=== PATIENT | female | born 1965 | race Caucasian/White ===

== ENCOUNTER 2016-10-21 20:45 | Emergency (ER) | payer OTHER ==
[2016-10-21] MEDS ORDERED: diphenhydrAMINE HCL 50 MG/ML VIAL IM ONE (21:27)
[2016-10-21] MEDS ORDERED: METHYLPREDNISOLONE SOD SUCC/PF 125 MG/2 ML VIAL IM ONE (21:29)
[2016-10-21] MEDS ORDERED: METHYLPREDNISOLONE SOD SUCC/PF 125 MG/2 ML VIAL ONE (21:32)
[2016-10-21] MEDS ORDERED: diphenhydrAMINE HCL 50 MG/ML VIAL ONE (21:32)
--- OUTSIDE RECORDS SUMMARY | 2016-10-21 21:34 | XMS REPORT | Continuity of Care Document ---
:1965 Author Organization [facility] ([facility]) Address [address] [place] [address] Phone [phone] Care Team Providers Name Role Phone Laila Armijo Primary Care Provider [phone] Source Comments This disclosure is being made pursuant to the Care Everywhere program, applicable federal and state laws, and may not contain all informaitonavailable regarding this patient.[facility] ([facility]) Active Allergies and Adverse Reactions No Known Allergies Current Medications Prescription Sig. Disp. Refills Start Date End Date Status acetaminophen 500 mg Take 500 mg by Active tablet mouth every 6 hours as needed. metFORMIN 1,000 mg Take 1,000 mg by Active tablet mouth 2 times daily with meals. Indications: TYPE 2 DIABETES MELLITUS lisinopril 10 mg Take 1 Tab by mouth 60 Tab 2 04/04/2013 Active tablet daily. Indications: HYPERTENSION albuterol 90 Use 2 Puffs by 1 Inhaler 6 04/04/2013 Active mcg/Actuation inhaler inhalation every 6 hours as needed. Indications: CHRONIC OBSTRUCTIVE PULMONARY DISEASE fluticasone-salmetero Use 1 Puff by 1 Inhaler 6 04/15/2013 Active l (ADVAIR 250-50) inhalation 2 times inhaler daily. Indications: COPD ASSOCIATED WITH CHRONIC BRONCHITIS amitriptyline 25 mg Take 1 Tab by mouth 30 Tab 3 04/15/2013 Active tablet at bedtime. Indications: NEUROPATHIC PAIN Active Problems Problem Noted Date Shoulder pain, right 04/15/2013 Hypertension 04/04/2013 Diabetes mellitus type 2 in obese 04/04/2013 Hyperlipidemia 04/04/2013 COPD (chronic obstructive pulmonary disease) 04/04/2013 Pulmonary nodule needs repeat CT scan October 2013 04/04/2013 Resolved Problems Problem Noted Date Resolved Date COPD with exacerbation 04/04/2013 04/15/2013 Immunizations Name Dates Previously Given Next Due Pneumococcal Polysaccharide, PPSV23 (Pneumovax 23) 04/15/2013 Social History Tobacco Use Types Packs/Day Years Used Date Current Every Day Smoker Cigarettes 1 20 Smokeless Tobacco: Never Used Alcohol Use Drinks/Week oz/Week Comments Yes 2 Standard drinks or equivalent Last Filed Vital Signs Vital Sign Reading Time Taken Blood Pressure 119/76 04/15/2013 10:50 AM CDT Pulse 107 04/15/2013 10:50 AM CDT Temperature 36.2 C (97.2 F) 04/15/2013 10:50 AM CDT Respiratory Rate 14 04/04/2013 12:35 PM CDT Height 1.727 m (5' 8") 04/04/2013 12:35 PM CDT Weight 102.105 kg (225 lb 1.6 oz) 04/15/2013 10:50 AM CDT Body Mass Index 34.23 04/15/2013 10:50 AM CDT Oxygen Saturation 96% 03/24/2013 5:34 PM CDT Plan of Care Health Maintenance Due Date Last Done Comments Hepatitis B Vaccine (1 of 3 - Primary 1967 Series) Tdap Vaccine 1978 MMR Vaccine 1985 Td Vaccine 1985 Cervical Cancer Screening 1997 Mammogram 2007 DIABETIC: Foot Exam 04/04/2013 DIABETIC: Retinal Eye Exam 04/04/2013 DIABETIC: Hemoglobin A1C 10/04/2013 04/04/2013 DIABETIC: Microalbumin 04/04/2014 04/04/2013 DIABETIC: Cholesterol 04/15/2014 04/15/2013, 04/04/2013 Diabetic: Hdl 04/15/2014 04/15/2013, 04/04/2013 Diabetic: Ldl 04/15/2014 04/15/2013, 04/04/2013 DIABETIC: Triglycerides 04/15/2014 04/15/2013, 04/04/2013 Influenza Vaccine: Seasonal (#1) 03/07/2016 Pneumococcal Vaccine Completed 04/15/2013 Results from Last 3 Months Not on file
--- NOTE | 2016-10-21 21:40 | ERNOTE ---
Allergy Symptoms - ER Date of Service: 10/21/16 Presenting Symptoms: skin rash, itching Time Seen by Provider: 10/21/16 21:19 Source: patient, RN notes reviewed Exam Limitations: no limitations Immunizations: IMMUNIZATION HX Immunizations Up to Date Yes History of Influenza Vaccine No Hx Pneumococcal Vaccination No Allergies/Adverse Reactions: Allergies No Known Allergies Allergy (Verified 10/21/16 20:52) Home Medications: HOME MEDICATIONS Acetaminophen [Tylenol] 650 mg PO Q4H PRN #0 tablet 02/19/14 [Last Taken Unknown ] Albuterol Sulfate [Ventolin Hfa] 2 puff IH Q4H PRN #1 inhaler 11/03/15 [Last Taken Unknown] Aspirin [Aspirin Enteric Coated] 325 mg PO DAILY #30 tablet. 11/03/15 [Last Taken Unknown] Clopidogrel Bisulfate [Plavix] 75 mg PO DAILY #30 tab 11/03/15 [Last Taken Unknown] Losartan Potassium [Cozaar] 100 mg PO DAILY #30 tab 11/03/15 [Last Taken Unknown ] Omeprazole [Prilosec] 40 mg PO DAILY #30 cap 11/03/15 [Last Taken Unknown] Simvastatin [Zocor] 40 mg PO HS #30 tablet 11/03/15 [Last Taken Unknown] metFORMIN HCL [Glucophage] 500 mg PO BIDWM #60 tablet 11/03/15 [Last Taken Unknown] predniSONE [Prednisone] 2 tab PO DAILY #10 tab 10/21/16 [Last Taken Unknown] - History of Present Illness Narrative: 51 y/o female ambulatory to the ED for an allergic reaction. She began having a rash and itching this evening. She took Benadryl without improvement. She had colored her hair earlier today, and does have a rash on her neck, but has papules on her arms, feet and lower legs as well. She denies any medication changes or use of any new products. No one else in her home has a rash. Timing: Present: getting worse Treatment SOFTWARE ENGINEER INTERN:: by patient, benadryl Location swelling: Present: none Severity shortness of breath: Present: mild Identified cause?: No Prior Treament: Denies: recently seen, similar symptoms before, currently on antibiotics Review of Systems - Review of Systems Constitutional: Absent: recent illness, malaise EYE: Present: other - itching. Absent: tearing ENT: Absent: nose congestion, nasal drainage, throat swelling Respiratory: Absent: shortness of breath, wheezing Cardiology: Present: no symptoms reported Gastrointestinal/Abdominal: Present: no symptoms reported Genitourinary: Present: no symptoms reported Musculoskeletal: Present: no symptoms reported Skin: Present: rash. Absent: lumps Neurological: Absent: headache, dizziness/light-headedness, weakness Endocrine: Present: no symptoms reported Hematologic/Lymphatic: Present: no symptoms reported Psych: Present: no symptoms reported - Patient's Past Medical History Patient History - Medical: Diabetes Type 2, GERD, Migraines, Osteoarthritis Patient History - Cardiac/Respiratory: Hypertension, Hyperlipidemia Patient History - Cancer: No Hx of Cancer Patient History - Surgical Procedures: Appendectomy, Cholecystectomy, Hysterectomy Patient History - Other: None - Social History Living Situations: home Abuse History: No History of abuse Psych History: No pertinent hx Smoking Status: Current every day smoker Cigarettes Packs Per Day: 1 Alcohol Use: none Drug Use: none - Immunizations Immunizations Up to Date: Yes Hx Pneumococcal Vaccination: No History of Influenza Vaccine: No Physical Exam - Physical Exam General Appearance: Present: wd/wn, alert, no apparent distress, other - scratching arms and legs continually Eye Exam: Normal inspection: bilateral Ears, Nose, Throat: Present: normal ENT inspection Neck: Present: nontender, supple, full range of motion Respiratory: Present: no respiratory distress, normal breath sounds, no accessory muscle use, lungs clear Cardiovascular/Chest: Present: regular rate, rhythm, no murmur, normal peripheral pulses Extremity Exam: Present: non-tender, normal range of motion, no edema Neurological Exam: Present: alert, oriented, normal mood/affect, no motor/ sensory deficits Skin Exam: Present: normal color, warm/dry, skin rash - papules around base of neck, on both arms, both hands, both feet, and both lower legs ED Progress - Vital Signs Patient's Vital Signs:: I have reviewed the patient's vital signs. Vital Signs: Vital Signs 10/21/16 10/21/16 20:48 21:00 Temperature 36.6 C Pulse Rate 102 H Respiratory 20 16 Rate Blood Pressure 162/95 O2 Sat by Pulse 98 Oximetry - Progress/Reassessment Chief Complaint: Allergic Reaction Progress:: Improved Departure Clinical Impression: Rash and nonspecific skin eruption - Departure Disposition: Home self-care Condition: Good Instructions: Contact Dermatitis Additional Instructions: Start prednisone tomorrow - take in mornings with food OK to take Benadryl every 6 hours as needed for itching Cortisone 10 cream may also help Follow up with your doctor if symptoms persist Referrals: Laila Armijo MD [Primary Care Provider] - Prescriptions: predniSONE [Prednisone] 2 tab PO DAILY #10 tab
[2016-10-21 22:06] VITALS: BP 116/84
== END 2016-10-21 21:51 | disposition home or self-care (01) ==
LOC: ER 20:45
DX: R21 Rash and other nonspecific skin eruption (principal); Z72.0 Tobacco use; E11.9 Type 2 diabetes mellitus without complications; E78.5 Hyperlipidemia, unspecified; K21.9 Gastro-esophageal reflux disease without esophagitis

== ENCOUNTER 2016-11-26 15:56 | Observation (INO) | payer OTHER ==
--- OUTSIDE RECORDS SUMMARY | 2016-11-26 16:26 | XMS REPORT | Continuity of Care Document ---
:1965 Author Organization [facility] ([facility]) Address [address] [place] [address] Phone [phone] Care Team Providers Name Role Phone Laila Armijo Primary Care Provider [phone] Source Comments This disclosure is being made pursuant to the Care Everywhere program, applicable federal and state laws, and may not contain all informaitonavailable regarding this patient.[facility] ([facility]) Active Allergies and Adverse Reactions No Known [...]
[2016-11-26 16:28] LABS: Hematocrit 44.4 % (37.0-47.0); Hemoglobin 14.8 gm/dL (12.5-16.0); Mean Cell Volume 89.3 fl (78-100); Mean Corpuscular Hemoglobin 29.8 pg (27-31); Mean Corpuscular Hgb Conc 33.3 g/dl (32-36); Mean Platelet Volume 9.5 fl (6.0-9.5); Neutrophil # 5.3 K/mm3 (1.3-6.0); Neutrophil % 50.6 % (42-75.0); Platelet Count 281 K/mm3 (150-450); Red Blood Count 4.97 M/mm3 (4.2-5.4); Red Cell Distribution Width 13.6 % (11.5-14.0); White Blood Count 10.4 K/mm3 (4.0-10.5)
[2016-11-26 16:37] LABS: Albumin * 3.5 gm/dl (3.4-5.0); Anion Gap 14.6 mmol/L (6.8-13.8); BUN/Creatinine Ratio 9.6 (9.0-21.6); Bilirubin, Total 0.3 mg/dL (0.0-1.1); Calcium * 8.9 mg/dL (7.9-10.9); Carbon Dioxide 26.1 mmol/L (24-32.6); Potassium 3.7 mmol/L (3.4-4.6); Total Protein 7.3 gm/dL (6.2-8.2)
--- OUTSIDE RECORDS SUMMARY | 2016-11-26 17:45 | XMS REPORT | Continuity of Care Document ---
:1965 Author Organization [facility] ([facility]) Address [address] [place] [address] Phone [phone] Care Team Providers Name Role Phone Laila Armijo Primary Care Provider [phone] Source Comments This disclosure is being made pursuant to the Care Everywhere program, applicable federal and state laws, and may not contain all informaitonavailable regarding this patient.[facility] ([facility]) Active Allergies and Adverse Reactions No Known [...]
--- NOTE | 2016-11-26 17:52 | ERNOTE ---
Neuro HPI ER Record Date of Service: 11/26/16 Presenting Symptoms: impaired speech, confusion Time Seen by Provider: 11/26/16 16:08 Source: patient, EMS Exam Limitations: no limitations Immunizations: IMMUNIZATION HX Immunizations Up to Date Yes History of Influenza Vaccine No Hx Pneumococcal Vaccination No Allergies/Adverse Reactions: Allergies Allergy/AdvReac Type Severity Reaction Status Date / Time No Known Allergies Allergy Verified 10/21/16 20:52 Home Medications: HOME MEDICATIONS Acetaminophen [Tylenol] 650 mg PO Q4H PRN #0 tablet 02/19/14 [Last Taken Unknown ] Albuterol Sulfate [Ventolin Hfa] 2 puff IH Q4H PRN #1 inhaler 11/03/15 [Last Taken Unknown] Aspirin [Aspirin Enteric Coated] 325 mg PO DAILY #30 tablet. 11/03/15 [Last Taken Unknown] Clopidogrel Bisulfate [Plavix] 75 mg PO DAILY #30 tab 11/03/15 [Last Taken Unknown] Losartan Potassium [Cozaar] 100 mg PO DAILY #30 tab 11/03/15 [Last Taken Unknown ] Omeprazole [Prilosec] 40 mg PO DAILY #30 cap 11/03/15 [Last Taken Unknown] Simvastatin [Zocor] 40 mg PO HS #30 tablet 11/03/15 [Last Taken Unknown] metFORMIN HCL [Glucophage] 500 mg PO BIDWM #60 tablet 11/03/15 [Last Taken Unknown] predniSONE [Prednisone] 2 tab PO DAILY #10 tab 10/21/16 [Last Taken Unknown] - History of Present Illness Narrative: Patient came by EMS after getting confuse and some more weakness on her R side. Patient was having some problems with speech according to EMS. Patient condition improved. Patient has Hx of R side weakness due to a previous CVA. Date (Duration): 11/26/16 Time (Timing): 14:50 Last Date Known Well: 11/26/16 Last Time Known Well: 14:50 Onset: sudden onset Severity: mild - Character of Deficits New weakness: Present: RUE, RLE Additional Deficits: Present: impaired speech, weakness, off balance Baseline Cognition: Present: alert, oriented x 4 Baseline Gait: Present: walks w/o assistance Associated Symptoms: Denies: fever/chills, sweating, chest pain, neck/back pain , headache, fainting, seizure, altered mental status, disoriented, confused, agitated, trouble concentrating, trouble thinking Prior Treament: Reports: recently seen Review of Systems - Review of Systems Constitutional: Present: weakness, malaise EYE: Present: no symptoms reported ENT: Present: no symptoms reported Respiratory: Present: no symptoms reported Cardiology: Absent: chest pain, palpitations, syncope, edema Gastrointestinal/Abdominal: Present: no symptoms reported Genitourinary: Present: no symptoms reported Musculoskeletal: Present: no symptoms reported Skin: Present: no symptoms reported Neurological: Present: dizziness/light-headedness, weakness, numbness, pre- existing deficit - R side weakness. Absent: anxiety, depressed, headache, seizure Endocrine: Present: no symptoms reported Hematologic/Lymphatic: Present: no symptoms reported Psych: Present: no symptoms reported All Other Systems: All systems neg except as marked - Patient's Past Medical History Patient History - Medical: Diabetes Type 2, GERD, Migraines, Osteoarthritis Patient History - Cardiac/Respiratory: CVA/Stroke, Hypertension, Hyperlipidemia , TIA Patient History - Cancer: No Hx of Cancer Patient History - Surgical Procedures: Appendectomy, Cholecystectomy, Hysterectomy Patient History - Other: None LMP (females 10-50): other - Social History Living Situations: home Abuse History: No History of abuse Psych History: No pertinent hx Alcohol Use: none Drug Use: none - Immunizations Immunizations Up to Date: Yes Hx Pneumococcal Vaccination: No History of Influenza Vaccine: No Physical Exam - Physical Exam General Appearance: Present: wd/wn, alert, no apparent distress Eye Exam: Normal inspection: bilateral, PERRL: bilateral, EOMI: bilateral Ears, Nose, Throat: Present: normal ENT inspection, normal pharynx Neck: Present: normal inspection, nontender Respiratory: Present: no respiratory distress, normal breath sounds, no accessory muscle use, chest nontender, lungs clear Cardiovascular/Chest: Present: regular rate, rhythm, no murmur, normal peripheral pulses Gastrointestinal/Abdominal: Present: normal bowel sounds, nontender, nondistended, soft, no organomegaly Rectal Exam: Present: nontender, normal rectal tone Back Exam: Present: normal inspection, normal range of motion, no CVA tenderness , no vertebral tenderness Extremity Exam: Present: normal inspection, non-tender, normal range of motion, no edema Neurological Exam: Present: alert, oriented, normal mood/affect, motor weakness - R side weakness when compared to the L side.. Absent: disoriented to person, disoriented to time, disoriented to place, disoriented to situation Skin Exam: Present: normal color, warm/dry Lymphatic Exam: Present: no adenopathy [place] Coma Scale - Assess Eye Opening: Spontaneous Motor: Obeys Commands Verbal: Oriented - Total Coma Scale Total: 15 Initial Stroke Assessment - Date/Time of assessment Stroke Scale Date: 11/26/16 Stroke Scale Time: 15:55 - NIH Stroke Scale Level of Consciousness: Alert LOC Questions (Year and Age): Answers both correctly LOC Commands (open/close eyes/fist): Performs both correctly Lateral Gaze Paresis: None Visual Field Loss: No visual loss Facial Palsy: Normal movement Right Arm Motor (10 sec hold): Drift Left Arm Motor (10 sec hold): No drift Right Leg Motor (5 sec hold): Drift Left Leg Motor (5 sec hold): No drift Limb Ataxia (finger/nose heel/sierra): Absent Sensory Loss (pinprick arms/legs/face): No sensory loss Language Aphasia (description/naming/reading): No aphasia; normal Dysarthria (speech clarity): Normal articulation Neglect Inattention (visual/tactile/auditory/spatial/person): No neglect Initial Stroke Scale Score:: 2 Stroke Inclusion/Exclusion Cri - Inclusion Questions: Yes Onset of symptoms <3 1/2 hours of admission to ETC: Yes - Exclusion Questions: Major symptoms rapidly improving: Yes Seizure at onset of stroke: No NIHSS Score <4 or >22 performed by physician: Yes Secondary Stroke Assessment - Date/Time of assessment Stroke Scale Date: 2 Stroke Scale Time: 17:46 - NIH Stroke Scale Level of Consciousness: Alert LOC Questions (Year and Age): Answers both correctly LOC Commands (open/close eyes/fist): Performs both correctly Lateral Gaze Paresis: None Visual Field Loss: No visual loss Facial Palsy: Normal movement Right Arm Motor (10 sec hold): Drift Left Arm Motor (10 sec hold): No drift Right Leg Motor (5 sec hold): Drift Left Leg Motor (5 sec hold): No drift Limb Ataxia (finger/nose heel/sierra): Absent If present, ataxia in:: Right arm Sensory Loss (pinprick arms/legs/face): No sensory loss Language Aphasia (description/naming/reading): No aphasia; normal Dysarthria (speech clarity): Normal articulation Neglect Inattention (visual/tactile/auditory/spatial/person): No neglect Secondary Stroke Scale Total:: 2 ED Progress - Date and Time Seen: Date and Time: 11/26/16 17:47 Patient at this point is considered to have a TIA. Patient with Hx of CVA and R side weakness. Patient will be place in hospital for observation further evaluation. 11/26/16 17:51 Case was presented to Hospitalist Service and accepted in Observation. - Results and Orders Patient's Lab Results:: I have reviewed the patient's lab results. Results and Orders: CBC: WNL CMP: WNL - Vital Signs Patient's Vital Signs:: I have reviewed the patient's vital signs. Vital Signs: Vital Signs 11/26/16 16:09 Temperature 36.8 C Pulse Rate 105 H Respiratory 24 H Rate O2 Sat by Pulse 92 Oximetry - EKG EKG: NSR EKG read: Interp. by me EKG Comments: HR: 107, S. Tachy, No ST Elevations, No change from previous EKG. - CT/Ultrasound CT/Ultrasound Narrative: CT Head: No new changes reported by Radiologist - Progress/Reassessment Chief Complaint: CerebroVascular Accident Progress:: Improved - Transfer of Care Expected Disposition: Admit Plan - Plan Plan: Patient is to be place in Observation Departure Clinical Impression: TIA (transient ischemic attack) Qualifiers: Transient cerebral ischemia type: unspecified Qualified Code(s): G45.9 - Transient cerebral ischemic attack, unspecified - Departure Disposition: [facility] Condition: Fair Referrals: Laila Armijo MD [Primary Care Provider] -
[2016-11-26] MEDS ORDERED: SIMVASTATIN 40 MG TABLET PO SCH (21:00)
[2016-11-26] MEDS ORDERED: CLOPIDOGREL BISULFATE 75 MG TABLET PO SCH (21:00)
[2016-11-26] MEDS: metFORMIN HCL 500 MG TABLET PO SCH (21:22)
--- NOTE | 2016-11-26 21:47 | HP ---
Chief Complaint - Chief Complaint Date of Service: 11/26/16 Time of Service: 21:01 Chief Complaint: " Dizziness, RT sided weakness,shaky". Source of HPI- Pt, reliable, ER provider notes. History of Present Illness: Ms. Kern is a 51-yr-old [place] pt of Dr. Laila Armijo with a PMH of: Appendicitis, CVA, Depression, DM II, HTN, HLD, Migraines, & Osteoporosis. Pt states that she was out doing eater egg hunting with family at 1 pm when she suddenly felt "dizzy, shaky and hot." She sat down for abit, but the symptoms never went away. She felt her RT side was getting weaker, and could not lift her RT leg. She reports having difficulty with speech. She states that she ' knew what she wanted to say but words could not come out.' Her came home and convinced her about seeking immediate medical care and she was brought to the [facility] ER at about 4.pm.There was no loss of consciousness. She denies the associated symptoms of N/V, Diaphoresis, & SOB. Since coming to the ED, she states that she has had on & off periods where she feels her "right eye is cloudy." Off note, she reports having CVA in February,, which left her with some RT sided weakness and required extensive rehabilitation at the [facility]. She has been on Aspirin, Plavix & Simvastatin since then. She states that even though she has always had some RT sided weakness, with today's episode, she felt more weaker. At the ED, the initial CT was negative for CVA.The lab-work was unremarkable. She has been a smoker for 23 yrs and says she has cut down from 3 PPD to 1 PPD. She will be admitted under observation status to ensure that there is no worsening Stroke symptoms that could cause loss of airway. - Patient's Past Medical History Patient History - Medical: Diabetes Type 2, Depression, GERD, Migraines, Osteoarthritis, Osteoporosis, Other - Osteoporosis, Migraines Patient History - Cardiac/Respiratory: CVA/Stroke, Hypertension, Hyperlipidemia , TIA Patient History - Cancer: No Hx of Cancer Patient History - Surgical Procedures: Appendectomy, Cholecystectomy, Hysterectomy Patient History - Other: None LMP (females 10-50): other - Family History Father Family History - Medical: Family History - Cardiac/Respiratory: Hypertension Mother Family History - Medical: Family History - Cardiac/Respiratory: Hypertension Family History - Cancer: Lung - Social History Living Situations: home Abuse History: No History of abuse Psych History: No pertinent hx Smoking Status: Current every day smoker Have you smoked in the past 12 months: Yes Do you dip or chew tobacco: No Smoking Start Date: 08/07/79 Patient requests Smoking Cessation Consult: No Initiate information on Smoking Cessation: No Alcohol Use: none Drug Use: none - Immunizations Immunizations Up to Date: Yes Hx Pneumococcal Vaccination: No History of Influenza Vaccine: No Review Of Systems (GEN) - Review of Systems Generalized/Overall Review: Present: Weakness - RT sided weakness,. Absent: Fever, Malaise EENTM: Present: Eye Pain, Blurred Vision - RT eye, Ear Pain. Absent: Throat Pain Respiratory: Absent: Cough, Shortness of Breath, Orthopnea Cardiac: Absent: Chest Pain, Edema, Palpitations Abdominal: Absent: Nausea, Vomiting, Hematemesis Genitourinary: Absent: Burning, Itching, Urgency, Hesitancy Musculoskeletal: Absent: Joint Pain, Back Pain, Joint Swelling Neurological: Present: Headache, Numbness, Weakness. Absent: Anxiety, Depressed , Tremors Skin: Absent: Dryness, Lesions Endocrine: Present: Intolerance to Heat Misc: All systems neg except as marked Immunizations: IMMUNIZATION HX Immunizations Up to Date Yes History of Influenza Vaccine No Hx Pneumococcal Vaccination No Allergies/Adverse Reactions: Allergies Allergy/AdvReac Type Severity Reaction Status Date / Time No Known Allergies Allergy Verified 10/21/16 20:52 Home Medications: HOME MEDICATIONS Acetaminophen [Tylenol] 650 mg PO Q4H PRN #0 tablet 02/19/14 [Last Taken Unknown ] Albuterol Sulfate [Ventolin Hfa] 2 puff IH Q4H PRN #1 inhaler 11/03/15 [Last Taken Unknown] Simvastatin [Zocor] 40 mg PO HS #30 tablet 11/03/15 [Last Taken 11/25/16 20:00] Aspirin [Aspirin Enteric Coated] 325 mg PO QAM 11/26/16 [Last Taken 11/26/16 12: 00] Clopidogrel Bisulfate [Plavix] 75 mg PO HS 11/26/16 [Last Taken 11/25/16 21:00] Losartan Potassium [Cozaar] 100 mg PO QAM 11/26/16 [Last Taken 11/26/16] Omeprazole [Prilosec] 40 mg PO QAM 11/26/16 [Last Taken 11/26/16 12:00] metFORMIN HCL [Glucophage] 1,000 mg PO BIDWM 11/26/16 [Last Taken 11/26/16 09:00 ] Exam - Exam Vital Signs: Vital Signs - Last Taken Temp 36.6 C 11/26/16 18:39 Pulse 92 11/26/16 18:39 Resp 18 11/26/16 18:39 BP 123/76 11/26/16 18:39 Pulse Ox 92 11/26/16 18:39 Constitutional: Present: Alert, Oriented x3, No distress ENT Exam: Present: normal ENT inspection, hearing grossly normal, dry mucous membranes. Absent: nasal drainage, pharyngeal erythema Eye Exam: bilateral eye: normal inspection, PERRL Neck: Present: full range of motion, supple, normal inspection Back Exam: Present: normal inspection, no CVA tenderness Breasts: Present: Exam deferred Respiratory: Present: lungs clear, no accessory muscle use Cardiovascular/Chest: Present: normal peripheral pulses, regular rate, rhythm, no chest tenderness, no edema, no murmur Abdomen: Present: Normal bowel sounds, soft, nontender /Rectal: Present: Exam deferred Extremity: Present: normal range of motion, non-tender, normal inspection, no pedal edema Skin Exam: Present: warm/dry, no cyanosis Lymphatic: Present: no adenopathy Neurologic: Present: oriented x 3, other - GSC-15, Muscle stregth 5/5 on LUE & LLE & 3/5 on RUE & RLE. Appearance: Present: appropriate appearance, appropriate insight Eye contact: Present: cooperative, good eye contact, decreased rate of speech, other - dysarthria, no visual field defect. Thoughts: Present: no apparent hallucination Diagnostic Studies: Laboratory Results WBC 10.4 K/mm3 (4.0-10.5) 11/26/16 16:17 RBC 4.97 M/mm3 (4.2-5.4) 11/26/16 16:17 Hgb 14.8 gm/dL (12.5-16.0) 11/26/16 16:17 Hct 44.4 % (37.0-47.0) 11/26/16 16:17 MCV 89.3 fl (78-100) 11/26/16 16:17 MCH 29.8 pg (27-31) 11/26/16 16:17 MCHC 33.3 g/dl (32-36) 11/26/16 16:17 RDW 13.6 % (11.5-14.0) 11/26/16 16:17 Plt Count 281 K/mm3 (150-450) 11/26/16 16:17 MPV 9.5 fl (6.0-9.5) 11/26/16 16:17 Immature Gran % (Auto) 0.50 % (0.001-0.429) H 11/26/16 16:17 Immature Gran # (Auto) 0.05 K/mm3 (0.000-0.0310) H 11/26/16 16:17 Neutrophils % 50.6 % (42-75.0) 11/26/16 16:17 Lymphocytes % 41.4 % (20-51) 11/26/16 16:17 Monocytes % 6.0 % (0.0-9) 11/26/16 16:17 Eosinophils % 1.2 % (0.0-3.0) 11/26/16 16: Basophils % 0.3 % (0.0-1.0) 11/26/16 16:17 Nucleated RBC % 0.0 k/mm3 (0-1) 11/26/16 16:17 Neutrophils # 5.3 K/mm3 (1.3-6.0) 11/26/16 16:17 Lymphocytes # 4.3 k/mm3 (1.5-3.5) H 11/26/16 16:17 Monocytes # 0.6 k/mm3 (0.0-1.0) 11/26/16 16:17 Eosinophils # 0.1 k/mm3 (0.0-0.7) 11/26/16 16:17 Absolute Basophils 0.0 k/mm3 (0.0-0.1) 11/26/16 16:17 Sodium 141 mmol/L (132-142) 11/26/16 16:17 Plasma Sodium 142 mmol/L (130-142) 11/26/16 16:17 Potassium 3.7 mmol/L (3.4-4.6) 11/26/16 16:17 Chloride 104 mmol/L (97-106) 11/26/16 16:17 Carbon Dioxide 26.1 mmol/L (24-32.6) 11/26/16 16:17 Anion Gap 14.6 mmol/L (6.8-13.8) H 11/26/16 16:17 BUN 12 mg/dL (3-23) 11/26/16 16:17 Creatinine 1.25 mg/dL (0.4-1.4) 11/26/16 16:17 Est GFR (Non-Af Amer) 48 mL/min (60-130) L D 11/26/16 16:17 BUN/Creatinine Ratio 9.6 (9.0-21.6) 11/26/16 16:17 Random Glucose 187 mg/dL (70-110) H 11/26/16 16:17 Calcium 8.9 mg/dL (7.9-10.9) 11/26/16 16:17 Calcium Adj for Albumin 9.0 mg/dL (8.4-10.2) 11/26/16 16:17 Total Bilirubin 0.3 mg/dL (0.0-1.1) 11/26/16 16:17 AST 10 U/L (0-48) 11/26/16 16:17 ALT 17 U/L (19-67) L 11/26/16 16:17 Alkaline Phosphatase 76 U/L (50-170) 11/26/16 16:17 Total Protein 7.3 gm/dL (6.2-8.2) 11/26/16 16:17 Albumin 3.5 gm/dl (3.4-5.0) 11/26/16 16:17 Assessment/Plan - Assessment/Plan (1) TIA (transient ischemic attack) Assessment: Pt presented with neurological dysfunction involving RT sided weakness, Dysathria, but there was no evidence of acute infarction on the Head CT done at the ED. The symptoms appear to have resolved on its own, but pt reports on and off periods of blurry vision and her RT side feels weaker, even thought she normally has mild weakness from prior CVA. May need MRI of the Brain and Carotid doppler, which needs to be obtained within 24 hours of symptom onset. She is already on Antiplatelet therapy, Antihypertensives, and statins. Therefore, will provide supportive mgt/observe: neurological deterioration, monitor cardiac rhythm, supplemental o2, allow permissive HTN, Blood sugar checks & neuro chekcs q 4 hrs. Problem: Acute Qualifiers: Transient cerebral ischemia type: unspecified Qualified Code(s): G45.9 - Transient cerebral ischemic attack, unspecified (2) Diabetes Problem: Chronic Qualifiers: Diabetes mellitus type: type 2 (3) History of CVA with residual deficit Problem: Chronic (4) HTN (hypertension) Problem: Chronic Qualifiers: Hypertension type: essential hypertension Qualified Code(s): I10 - Essential (primary) hypertension
[2016-11-26 22:50] LABS: Prothrombin Time (Patient) 10.1 Seconds (9.4-11.4)
[2016-11-26 22:52] LABS: INR 0.97 INR (0.90-1.10); Partial Thrombolplastin Time 26.1 Seconds (24-32)
[2016-11-26] MEDS ORDERED: ALBUTEROL SULFATE 2.5 MG/0.5 ML VIAL.NEB IH PRN (23:00)
[2016-11-27] MEDS: ACETAMINOPHEN 325 MG TABLET PO PRN ×2 (03:59→10:56)
[2016-11-27] MEDS ORDERED: NICOTINE 21 MG PATC TD SCH (04:00)
[2016-11-27] MEDS ORDERED: PANTOPRAZOLE SODIUM 40 MG TABLET.EC PO SCH (07:00)
[2016-11-27] MEDS ORDERED: ALBUTEROL SULFATE 2.5 MG/3 ML VIAL.NEB IH PRN (07:27)
[2016-11-27] MEDS: metFORMIN HCL 500 MG TABLET PO SCH (08:50)
[2016-11-27] MEDS ORDERED: LOSARTAN POTASSIUM 50 MG TABLET PO SCH (09:00)
[2016-11-27] MEDS ORDERED: ASPIRIN 325 MG TABLET.DR PO SCH (09:00)
[2016-11-27 12:45] VITALS: BP 118/80
--- NOTE | 2016-11-27 13:20 | DS ---
Description of Stay: Date of Admission: 11/26/16 Date of Discharge: 11/27/16 Description of Stay: 11/26/16 51 year old female admitted with increasing right sided weakness. history of cva february 2014 with residual right sided weakness, currently taking aspirin, plavix and simvastatin. ct of head in ER was non-acute. patient continues to smoke daily - 1 PPD. 11/27/16 discharge day. smoking cessation discussed. handouts provided. no acute event overnight. Procedures Performed: none Results and Findings: Laboratory Tests 11/26/16 11/26/16 11/26/16 16:17 16:17 22:25 WBC 10.4 Hgb 14.8 Plt Count 281 Sodium 141 BUN 12 Creatinine 1.25 Random Glucose 187 H AST 10 ALT 17 L Troponin I Less than 0.017 Discharge Disposition: Home self care Disposition: Home self-care Condition: Undetermined Discharge Activity: Activity as tolerated Discharge Diet: Consistent carbs Referrals: Laila Armijo MD [Primary Care Provider] - Problem Oriented Discharge Instructions to Patient/Family: Stroke Prevention, [id number], Transient Ischemic Attack, [id number], Smoking Cessation, Tips for Success Additional Patient Instructions (free text): Be sure to drink plenty of water. Stop smoking! Follow up with primary care physician in 1 month. Medication changes: - Cholesterol medication - Take 2 Zocor tabs from home supply until medication is gone. - Then switch to Lipitor 40 mg daily (Rx sent in at discharge). Prescriptions (Any new or edited meds): Atorvastatin Calcium [Lipitor] 40 mg PO HS #30 tablet Complete Home Medications List: Complete Home Medication List: Acetaminophen [Tylenol] 650 mg PO Q4H PRN #0 tablet 02/19/14 Albuterol Sulfate [Ventolin Hfa] 2 puff IH Q4H PRN #1 inhaler 11/03/15 Aspirin [Aspirin Enteric Coated] 325 mg PO QAM 11/26/16 Clopidogrel Bisulfate [Plavix] 75 mg PO HS 11/26/16 Losartan Potassium [Cozaar] 100 mg PO QAM 11/26/16 Omeprazole [Prilosec] 40 mg PO QAM 11/26/16 metFORMIN HCL [Glucophage] 1,000 mg PO BIDWM 11/26/16 Atorvastatin Calcium [Lipitor] 40 mg PO HS #30 tablet 11/27/16
== END 2016-11-27 14:20 | disposition home or self-care (01) ==
LOC: ER 15:56 → NUR 17:41 → MS 17:53
PROVIDERS: ADMIT Nurse Practitioner Critical Care Medicine; ATTEND Internal Medicine
DX: G45.9 Transient cerebral ischemic attack, unspecified (principal); I69.351 Hemiplegia and hemiparesis following cerebral infarction affecting right dominant side; E11.9 Type 2 diabetes mellitus without complications; Z79.84 Long term (current) use of oral hypoglycemic drugs; I10 Essential (primary) hypertension; K21.9 Gastro-esophageal reflux disease without esophagitis; G43.909 Migraine, unspecified, not intractable, without status migrainosus; E78.5 Hyperlipidemia, unspecified; F17.210 Nicotine dependence, cigarettes, uncomplicated
CPT/HCPCS: 36415; 70450; 80053; 84484; 85025; 85610; 85730; 93005; 99284; G0378